=== PATIENT | female | born 1965 ===

== ENCOUNTER 2017-05-29 05:56 | Day surgery (SDC) | payer BC ==
[2017-05-22 08:24] VITALS: BMI 35.2
[2017-05-29 06:27] VITALS: RESP 20
--- NOTE | 2017-05-29 07:09 | CP.SDSHP ---
Same Day Surgery H & P - History Proposed Procedure: Right foot heel spur resection and plantar fascial release Pre-Op Diagnosis: Right foot painful heel spur and plantar fasciitis - Previous Medical/Surgical History Pain: 4.Moderate Pain Previous Surgical History: Cholecystectomy, hysterectomy - Allergies Allergies: Allergies No Known Allergies Allergy (Verified 11/02/15 15:43) - Physical Exam Vital Signs: Vital Signs 05/29/17 05/29/17 06:26 06:44 Temperature 98.6 F Pulse Rate 56 L 56 L Respiratory 20 Rate Blood Pressure 153/92 H O2 Sat by Pulse 97 Oximetry Mental Status: Alert & Oriented x3 Neuro: WNL Heart: WNL Lungs: WNL GI: WNL - {Optional Preform as Required} Integument: WNL Ortho: Other (pain on palpation r heel) - Impression Impression: Pt was seen and examined in SDS. Pt NPO status was confirmed. All Pre-op testing and clearance was in the chart. Pt has exhausted all conservative treatment at this time and is opting for surgical intervention. Pt was explained procedure and post-operative course. All pt's questions were answered to satisfaction. No guarantees were made. Pt understands all risks, benefits and complications of procedure. Pt will follow-up with Dr. Epstein Pt. Evaluated Today:Candidate for Anesthesia & Procedure: Yes - Date & Time Date: 05/29/17 Time: 07:00 Short Stay Discharge - Short Stay Discharge Admitting Diagnosis/Reason for Visit: M72.2 Disposition: HOME/ ROUTINE Referrals: FAMILY PROVIDER,NO [Primary Care Provider] - Follow-up: Follow up with Dr. Epstein in office Instructions: RICE Therapy (GEN) Progress Note/Discharge Note with Instructions: Patient in good/stable condition for discharge home. Pt to resume medications per medical reconciliation. Resume regular diet. Please keep dressing clean, dry, & intact to surgical site, use plastic bag over bandage for showering, wear CAM walker at all times when ambulating with the assistance of crutches, call office if you see signs of infection (redness, swelling, malodor), please make an appointment to see Dr. Epstein in office within 1 week for post-op check.
--- NOTE | 2017-05-29 07:14 | CP.SDSHP ---
Same Day Surgery H & P - Allergies Allergies: Allergies No Known Allergies Allergy (Verified 11/02/15 15:43) - Physical Exam Vital Signs: Vital Signs 05/29/17 05/29/17 06:26 06:44 Temperature 98.6 F Pulse Rate 56 L 56 L Respiratory 20 Rate Blood Pressure 153/92 H O2 Sat by Pulse 97 Oximetry Short Stay Discharge - Short Stay Discharge Admitting Diagnosis/Reason for Visit: M72.2 Disposition: HOME/ ROUTINE Referrals: FAMILY PROVIDER,NO [Primary Care Provider] -
--- NOTE | 2017-05-29 07:19 | CP.PCM.PN ---
Subjective - Date & Time of Evaluation Date of Evaluation: 05/29/17 Time of Evaluation: 07:17 - Subjective Subjective: 51 year old female patient unremarkable PMHx seen in [facility] for pre-operative evaluation for right heel spur resection and plantar fascial release by Dr. Epstein today. Patient has been having a lot of pain in her right heel and has exhausted conservative treatment and now opts for surgical intervention. NPO status confirmed. Patient is NAD and AAOx3, denies n/v/f/c/sob/cp. Objective - Vital Signs/Intake and Output Vital Signs (last 24 hours): Temp Pulse Resp BP Pulse Ox 98.6 F 56 L 20 153/92 H 97 05/29/17 06:26 05/29/17 06:44 05/29/17 06:26 05/29/17 06:26 05/29/17 06:26 - Constitutional Appears: Well, Non-toxic, No Acute Distress - Extremities Exam Additional comments: VASC: DP and PT pulses palpable 2/4 b/l. CFT <3 seconds x10. No edema noted. TG wnl. NEURO: Gross sensation intact bilaterally. DERM: No open lesions noted. Skin appears well hydrated. ORTHO: POP right medial calcaneal tubercle Biomechanical: Patient presents with an antalgic gait with a limp to the RLE and external rotation of R leg. Early heel off noted to R ankle. 1st MPJ ROM > 65 degrees bilateral without pain or crepitus noted. 1st ray ROM increased in dorsiflexion bilateral. HAV noted bilaterally - medial eminence noted to the 1st metatarsal bilateral with an abducted hallux. MTJ ROM WNL without pain or crepitus noted. STJ ROM full bilateral with 20 degrees of inversion and 10 degrees eversion. RCSP is 4 degrees everted with NCSP 0 degrees bilateral. The forefoot is perpendicular to the rearfoot. Ankle joint dorsiflexion is >10 degrees with the knee extended and flexed. Muscle strength 5/5 for all dorsiflexors, plantarflexors, inverters, and everters bilateral without pain noted. - Neurological Exam Neurological Exam: Alert, Awake, Oriented x3 - Psychiatric Exam Psychiatric exam: Normal Affect, Normal Mood Assessment and Plan - Assessment and Plan (Free Text) Assessment: 51 year old female patient with right foot painful heel spur and plantar fasciitis Plan: Pt was seen and examined in SDS Pt NPO status was confirmed All Pre-op testing and clearance was in the chart Pt has exhausted all conservative treatment at this time and is opting for surgical intervention Pt was explained procedure and post-operative course All pt's questions were answered to satisfaction No guarantees were made Pt understands all risks, benefits and complications of procedure Pt will follow-up with Dr. Epstein in office
[2017-05-29] MEDS ORDERED: Lidocaine 1% Inj (20ml) IJ ONE ×2 (07:20→08:12)
[2017-05-29] MEDS ORDERED: ceFAZolin 1 GM in Sodium Chloride 0.9% 100 ML IVPB ONE (07:22)
[2017-05-29] MEDS ORDERED: Sodium Chloride 0.9% 500 ML IV SCH (07:30)
[2017-05-29] MEDS ORDERED: Propofol 10 mg/ml Inj (20 ML) ONE ×2 (07:47→08:38)
[2017-05-29] MEDS ORDERED: Bupivacaine 0.5% Inj(30mL) ONE (07:48)
[2017-05-29] MEDS ORDERED: Midazolam 2 MG/2 ML VIAL ONE (07:48)
[2017-05-29] MEDS ORDERED: Dexamethasone 4 mg/1 ml ONE (07:48)
[2017-05-29] MEDS ORDERED: Lidocaine 1% Inj (20ml) ONE (07:48)
[2017-05-29] MEDS ORDERED: Lactated Ringer's 500 ML IV ONE (07:50)
[2017-05-29] MEDS ORDERED: Betamethasone Soluspan 30 mg/5mL Inj Susp IM ONE ×3 (07:59→08:52)
[2017-05-29] MEDS ORDERED: Lactated Ringer's 1,000 ML IV SCH (08:45)
[2017-05-29] MEDS ORDERED: Bupivacaine 0.5% 50 ML IJ ONE (08:52)
--- NOTE | 2017-05-29 09:03 | PCM.SURG1 ---
Surgeon's Initial Post Op Note - Surgeon's Notes Surgeon: Dr. Epstein [employer] Referral Clerk: Kirill Cleary PGY2 Type of Anesthesia: IV Sedation, Local Anesthesia Administered By: Dr. Angeles Pre-Operative Diagnosis: Right painful heel spur and plantar fasciitis Operative Findings: See operative report. Materials: 3-0 nylon. Injectables: 9cc 1% lidocaine (pre-op); 8cc 1% lidocaine plain & 10cc 0.5% marcaine plain ( intra-op), 2cc celestone soluspan Post-Operative Diagnosis: Same as above Operation Performed: Right foot resection of spur and plantar fasciectomy Specimen/Specimens Removed: none Estimated Blood Loss: EBL {In ML}: 3 Blood Products Given: N/A Drains Used: No Drains Post-Op Condition: Good Date of Surgery/Procedure: 05/29/17 Time of Surgery/Procedure: 09:04
[2017-05-29] MEDS ORDERED: Oxycodone/Acetaminophen 5/325 mg Tab PO PRN ×2 (09:06)
[2017-05-29 10:42] VITALS: BP 160/88; PULSE 59; TEMP 98; O2SAT 98
[2017-05-29] MEDS ORDERED: Oxycodone/Acetaminophen 5/325 mg Tab PO ONE (10:48)
--- NOTE | 2017-05-29 20:02 | RAD ---
PROCEDURE: Right Foot Radiographs. HISTORY: s/p right foot surgery COMPARISON: None. FINDINGS: BONES: Normal. No fracture. JOINTS: Normal. SOFT TISSUES: Normal. OTHER FINDINGS: None. IMPRESSION: No acute findings related to/accounting for the clinical presentation.
--- NOTE | 2017-05-29 22:54 | CARD ---
APPROVED REPORT EKG Measurement Heart [id number] <Conclusion> Sinus bradycardia with sinus arrhythmia Minimal voltage criteria for LVH, may be normal variant Borderline ECG
== END 2017-05-29 11:35 | disposition home or self-care (01) ==
LOC: H.OPSURG 05:56
PROVIDERS: ATTEND Podiatrist Foot & Ankle Surgery
DX: M77.31 Calcaneal spur, right foot (principal); M72.2 Plantar fascial fibromatosis; Z90.49 Acquired absence of other specified parts of digestive tract; Z90.710 Acquired absence of both cervix and uterus
CPT/HCPCS: 28060; 28119; 73630; 93005; 97116; 97161; G8978; G8979; G8980; J0690; J0702; J2001; J2250; J2704; J3010; J7120